=== PATIENT | male | born 1950 | race Caucasian/White ===

== ENCOUNTER 2023-08-02 10:47 | Emergency (ER) | payer OTHER, SELFPAY ==
[2023-08-02 10:48] VITALS: BP 128/83
--- NOTE | 2023-08-02 11:34 | ED.GENMED ---
History of Present Illness
General
Chief Complaint: Catheter/Tube Problem
Source: patient
Time Seen by Provider: 08/02/23 11:19
Travel History
Have you had any contact with someone who has COVID-19?: No
Do you have any symptoms of coronavirus? Fever > 100 degrees, chills, cough, shortness of breath, sore throat, loss of taste or smell, muscle aches, or headache?: No
History of Present Illness
History of Present Illness:
73-year-old male with past medical history of throat cancer, hypertension, hyperlipidemia, status post chronic PEG tube placement presenting to the emergency department for evaluation after a small piece of the PEG tube started become loose causing
the PEG tube leak intermittently and he is now requesting a change in his PEG tube. Patient states he believes the last PEG tube replacement was done about 6 months ago. He has no other concerns at this time including fevers or infectious
symptoms, pain, vomiting, bowel changes.
Past History
Past History
ED Past Medical History: Cancer, HTN, Hypercholesterolemia and Other (GBS, throat cancer, neuropathy)
ED Past Surgical History: Other (Trach, feeding tube)
Social History
Tobacco: Non-smoker
Alcohol: None
Drug: Marijuana
Personal:
Living: alone
Review of Systems
Review of Systems
All Other Systems: ROS reviewed and negative except as documented in HPI and ROS
Phy Exam
Physical Exam
Physical Exam:
GENERAL: Alert , in no apparent distress
EYE: conjunctiva clear
Head: Normocephalic atraumatic
NECK: Supple,
ENT: mmm.
LUNGS: no acute respiratory distress
Abdomen: PEG tube in place without any surrounding cellulitic changes or drainage
NEUROLOGICAL: Alert and oriented
SKIN: Warm and dry, skin intact.
MUSCULOSKELETAL: well perfused.
PSYCH: Normal and appropriate interaction.
Scores
Heart Failure Risk
Heart Failure Risk Score: Not Applicable
Heart Score for Chest Pain Patients
STEMI patient?: Not applicable
Withdrawal Assessment of Alcohol
Withdrawal Assessment Completed?: Not applicable
Course
Orders/Labs/Results
Orders:
Orders
08/02/23 12:24
[facility] CONSULT Urgent
Consulting Provider: Thomas Dorado
Was physician already notified: Yes
Reason for consult: GJ tube check and replacement
Vital Signs
Initial and Last Documented VS:
Initial Vital Signs
Temp Pulse Resp BP Pulse Ox
97.2 F 76 16 128/83 96
08/02/23 10:48 08/02/23 10:48 08/02/23 10:48 08/02/23 10:48 08/02/23 10:48
Last Documented Vital Signs
Temp Pulse Resp BP Pulse Ox
97.2 F 56 16 89/62 97
08/02/23 10:48 08/02/23 14:22 08/02/23 14:22 08/02/23 14:22 08/02/23 14:22
MDM/Problems Addressed
MDM/Problems Addressed:
73-year-old male presenting to the emergency department for PEG tube malfunction and now requesting a change in PEG tube. Patient currently has a [address] I notified interventional radiology who will attempt to replace today.
*Pulse Oximetry
Patient hypoxic: no
*Critical Care Note
Total Time (30-74mins, 75-104mins- exclusive of procedures): Not Applicable
Data Reviewed
Review of Other/Old Records Reveals: Records
Source: patient and records
Comment
Comment:
Based off record review patient last had feeding tube placed here on October 29, 2022. This was done by interventional radiology and had a 22 Hungarian GJ placed
Patient Management
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
Escalation/DeEscalation of care consider admission/obs:
Interventional radiology aware and will attempt to replace GJ tube.
Patient returned from IR after having GJ tube replaced without any difficulty. He is requesting discharge home. Aware of return precautions but otherwise stable for discharge home.
ED Attending Note
-
Portions of this chart may have been created with voice recognition software.� Occasional wrong word or��sound alike� substitutions may have occurred due to the inherent limitations of voice recognition software.
Discharge Plan
Departure
Patient Disposition: Home (Routine Discharge)
Date of Disposition: 08/02/23
Time of Disposition: 15:48
Patient with high blood pressure during this ER visit?: No
Discharge Problem:
Encounter for gastrojejunal (GJ) tube placement
Instructions: How to Care for Your Gastrostomy Tube
Prescriptions:
No Action
levothyroxine 200 mcg tablet
200 mcg PO DAILY AT 0700
Eliquis 5 mg Tablet
5 mg PO BID Qty: 60 0RF
amiodarone [Pacerone] 200 mg Tablet
400 mg feeding tube BID Qty: 64 0RF
Rx Instructions:
Take 2 tabs(400mg) twice a day x 9 days. On 11/06 start taking 1 tab(200mg) twice a day x 14 days
metoprolol tartrate 25 mg Tablet
25 mg feeding tube BID Qty: 60 0RF
Referrals:
UNKNOWN - PT DOES,NOT KNOW [Family Provider] -
Interventions
Interventions:
*Risk Screen - Suicide Last Done: 08/02/23 11:37
*General Assessment Last Done: 08/02/23 11:37
*Neglect/Abuse Screening Last Done: 08/02/23 11:37
ED- Fall Risk Assessment Last Done: 08/02/23 11:37
*ED COVID-19 Vaccine History Last Done: 08/02/23 10:48
*Nursing Disposition Last Done: 08/02/23 15:52
TP-Tmgivk-Yzawebvdhf Assessment Last Done: 08/02/23 11:37
Discharge Date and Time
Discharge Date/Time: 08/02/23 15:53
[2023-08-02 13:15] VITALS: BP 81/59
[2023-08-02 14:22] VITALS: BP 89/62
== END 2023-08-02 15:53 | disposition home or self-care (01) ==
LOC: EMR 10:47
PROVIDERS: CONSULT PHYSICIAN Radiology Diagnostic Radiology; EMERGENCY PHYSICIAN Emergency Medicine
DX: K94.23 Gastrostomy malfunction (principal); C14.0 Malignant neoplasm of pharynx, unspecified; E78.00 Pure hypercholesterolemia, unspecified; I10 Essential (primary) hypertension; G62.9 Polyneuropathy, unspecified; G61.0 Guillain-Barre syndrome; Z79.01 Long term (current) use of anticoagulants
CPT/HCPCS: 99283; 49452

== ENCOUNTER → 2023-08-10 10:37 | Outpatient (REF) | payer OTHER, SELFPAY | LOC: REG 10:37 | PROVIDERS: ATTENDING PHYSICIAN Emergency Medicine | DX: R19.7 Diarrhea, unspecified (principal) | CPT/HCPCS: 87045; 87046; 87077; 87324; 87328; 87329; 87427; 87449 ==

== ENCOUNTER 2023-11-15 11:13 | Inpatient (IN) | payer OTHER, SELFPAY ==
[2023-11-15] VITALS (16 sets, daily range): BP systolic 108–170; BP diastolic 69–122; BMI 21.3; BMI 21.4; BMI 20.8
--- NOTE | 2023-11-15 07:29 | ED.GENMED ---
History of Present Illness
General
Chief Complaint: Airway Problem
Time Seen by Provider: 11/15/23 07:21
History of Present Illness
History of Present Illness:
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
shortness of breath and productive cough for the past week. He states he developed symptoms while he was in [place], felt as though he could not breathe and could not stand still for very long, shortly after returning from [place] by flight he had
increased coughing and shortness of breath. States that it feels as though his lungs are filling up with fluid. Denies any leg swelling or chest pain. No fevers or chills. Hypoxic on arrival as EMS with 15 L nonrebreather mask
Past History
Past History
ED Past Medical History: Cancer, HTN, Hypercholesterolemia and Other (GBS, throat cancer, neuropathy)
ED Past Surgical History: Other (Trach, feeding tube)
Social History
Tobacco: Non-smoker
Alcohol: None
Drug: Marijuana
Personal:
Living: alone
Review of Systems
Review of Systems
Allergies reviewed?: Yes
All Other Systems: ROS reviewed and negative except as documented in HPI and ROS
Phy Exam
Physical Exam
Physical Exam:
GEN: Nontoxic in appearance, well-developed well-nourished
Eyes: PERRLA, EOMs intact, no scleral icterus
HENT: NCAT, oral mucosa moist, no JVD, no cervical adenopathy.
Lungs: Tachypneic with conversational dyspnea, coarse rhonchi and rales over fourth bilaterally, diminished left lower breath sounds
Cardiac: RRR, no M/R/G, no peripheral edema. Radial pulses 2+ bilat
Abdomen: S, NT, ND, NABS, no masses or hepatosplenomegaly
Neuro: AO x 3
MSK: No gross deformity or ecchymosis. No edema. No digital clubbing
Skin: No rashes, petechiae. Normal color, no pallor or jaundice.
Psych: Calm, cooperative, proper hygiene
Course
Orders/Labs/Results
Orders:
Orders
11/15/23 07:22
Electrocardiogram (*1) Urgent
Reason for Study: Shortness of Breath
11/15/23 07:24
EKG- Treatment ONCE
11/15/23 07:28
Chest X-ray Portable [CR Chest Portable - 1 View] Urgent
Comment:
Reason For Exam: SOB
Reason Study Needs to be Portable: Patient Unstable
11/15/23 07:31
Complete Blood Count/With Diff Urgent
Comprehensive Metabolic Panel Urgent
Lactic Acid Urgent
Troponin I Urgent
Blood Culture Urgent
TUSHAR Source: Blood/Venous
Specimen Description:
11/15/23 07:57
0.9% Sodium Chloride 1000 ml [Nss] 1,000 ml IV BOLUS
11/15/23 08:05
MethylPREDNISolone PF [Solu-Medrol Pf] 60 mg IV NOW STA
11/15/23 08:18
Procalcitonin Urgent
PCT Algorithmm Indication: Respiratory
Blood Culture Routine
TUSHAR Source: Blood/Venous
Specimen Description:
11/15/23 08:31
COVID-19 Antigen Urgent
Source: Nasal Swab
Influenza A+B Rapid Molecular Urgent
TUSHAR Source: Nasal Swab
Specimen Description:
11/15/23 08:46
Piperacillin/Tazo 3.375 Gram [Zosyn] 3.375 gram in 50 ml IV NOW
Abnormal Lab Results
11/15/23
07:31
MCHC 29.5 L g/dL
(33.0-37.0)
RDW 17.5 H %
(11.5-14.5)
MPV 11.1 H fL
(7.4-10.4)
Abs Immat Gran (auto) 0.2 H 10^3/uL
(0-0.05)
Absolute Neuts (auto) 6.7 H 10^3/uL
(1.4-6.5)
Absolute Lymphs (auto) 1.1 L 10^3/uL
(1.2-3.4)
Absolute Monos (auto) 0.8 H 10^3/uL
(0.1-0.6)
Immature Gran % 2.5 H %
(0-0.5)
Lymphocytes % 12.7 L %
(20.5-51.1)
Chloride 96 L mmol/L
(98-107)
Carbon Dioxide 38 H mmol/L
(22-30)
BUN 60 H mg/dl
(9-20)
Glucose 182 H mg/dl
(70-99)
Lactic Acid 3.1 H mmol/L
(0.7-2.0)
Troponin I 0.082 H* ng/ml
11/15/23 07:31
11/15/23 07:31
Vital Signs
Initial and Last Documented VS:
Initial Vital Signs
Pulse Ox
95
11/15/23 07:24
Last Documented Vital Signs
Temp Pulse Resp BP Pulse Ox
97.9 F 78 22 115/73 91
11/15/23 07:29 11/15/23 08:15 11/15/23 08:15 11/15/23 08:00 11/15/23 08:24
MDM/Problems Addressed
MDM/Problems Addressed:
73-year-old male presenting with respiratory failure, his history is complex with prior tracheostomy status post decannulation and recurrent aspiration. He is feeding pending at this point. His daughter is concerned that his hygiene is suboptimal
and this leads to his recurrent infectious issues. Do not suspect pulmonary embolism given anticoagulant use, he does not appear volume overloaded to suggest acute CHF but is noted to have bilateral pleural effusions on chest x-ray. There is a
right lower lobe density thus we will treat as presumed aspiration pneumonia, he is requiring 15 L mid flow oxygen to maintain adequate saturations thus he will be admitted to the hospital service for further management
*Critical Care Note
Total Time (30-74mins, 75-104mins- exclusive of procedures): 32 minutes
comment:
Critical care time: 32 minutes
Critical care time was exclusive of: Separately billable procedures, treating other patients, and teaching time
Critical care was necessary to treat or prevent imminent or life-threatening deterioration of the following conditions: Acute respiratory failure with hypoxia
Critical care time spent personally by me on the following activities:
[x] Review of old charts
[x] Obtaining history from patient or surrogate
[x] Ordering and review of the laboratory studies
[x] Ordering and review of radiographic studies
[x] Ordering and performing treatments and interventions
[x] Patient patient's response to treatment
[x] Development of treatment plan with patient or surrogate
ED Attending Note
-
Portions of this chart may have been created with voice recognition software.� Occasional wrong word or��sound alike� substitutions may have occurred due to the inherent limitations of voice recognition software.
Discharge Plan
Departure
Patient Disposition: Admit
Date of Disposition: 11/15/23
Time of Disposition: 08:51
Admit to: Med/Surg
Presentation/result/management discussed w/ accepting MD/DO: Hospitalist
Discharge Problem:
Acute hypoxemic respiratory failure, Right lower lobe pneumonia
Prescriptions:
No Action
loperamide 2 mg Tablet
2 mg feeding tube Q4HPRN PRN (Reason: diarrhea)
levofloxacin [Levaquin] 750 mg Tablet
750 mg feeding tube DAILYPRN PRN (Reason: infection)
amiodarone [Pacerone] 200 mg tablet
200 mg feeding tube DAILY
metoprolol tartrate 25 mg tablet
25 mg feeding tube DAILY
Eliquis 5 mg tablet
5 mg feeding tube DAILY
Patient Comments:
11/15/2023- bottle written for bid not daily
levothyroxine [Synthroid] 175 mcg Tablet
feeding tube DAILY
Rx Instructions:
patient has 175mcg and 200mcg in his bottles, stated he does not know what they are but takes them once a day. all bottles are date 2022 and mixed. ost are missing labels
Referrals:
UNKNOWN - PT DOES,NOT KNOW [Family Provider] -
Interventions
Interventions:
*Risk Screen - Suicide Last Done: 11/15/23 07:29
*General Assessment Last Done: 11/15/23 07:29
*Neglect/Abuse Screening Last Done: 11/15/23 07:29
*ED COVID-19 Vaccine History Last Done: 11/15/23 07:29
ED- Pulmonary Assessment Last Done: 11/15/23 07:24
Discharge Date and Time
Print Language: SOU[place]UDANESE
[2023-11-15 07:41] LABS: % Basophils 0.4 % (0-2); % Eosinophils 0.3 % (0-6); % Immature Granulocytes 2.5 % (0-0.5); % Lymphocytes 12.7 % (20.5-51.1); % Monocytes 8.9 % (1.7-9.3); % Neutrophils 75.2 % (42.2-75.2); Absolute Immature Granulocytes 0.2 10^3/uL (0-0.05); Absolute Lymphocytes 1.1 10^3/uL (1.2-3.4); Absolute Monocytes 0.8 10^3/uL (0.1-0.6); Absolute Neutrophils 6.7 10^3/uL (1.4-6.5); Hematocrit 47.1 % (39.0-52.0); Hemoglobin 13.9 g/dL (13.0-18.0); Mean Corp Hgb Conc. 29.5 g/dL (33.0-37.0); Mean Corpuscular Hgb 27.5 pg (27.0-31.0); Mean Corpuscular Volume 93.3 fL (80.0-94.0); Mean Platelet Volume 11.1 fL (7.4-10.4); Nucleated Red Blood Cells % 0.3 % (-); Platelet Count 162 10^3/uL (130-400); Red Blood Cell Count 5.05 10^6/uL (4.70-6.10); Red Cell Dist. Width 17.5 % (11.5-14.5)
[2023-11-15 07:54] LABS: ALT (SGPT) 18 U/L (0-50); AST (SGOT) 26 U/L (17-59); Albumin 3.7 g/dl (3.5-5.0); Alkaline Phosphatase 94 U/L (38-126); Blood Urea Nitrogen 60 mg/dl (9-20); Carbon Dioxide 38 mmol/L (22-30); Chloride 96 mmol/L (98-107); Estimated Creatinine Clearance 50 ml/min; Glucose 182 mg/dl (70-99); Potassium 4.6 mmol/L (3.5-5.1); Sodium 138 mmol/L (135-145); Total Bilirubin 0.6 mg/dl (0.2-1.3); Total Protein 6.3 g/dl (6.3-8.2); eGFR 58.73
[2023-11-15 07:55] LABS: Lactic Acid 3.1 mmol/L (0.7-2.0)
[2023-11-15 08:08] LABS: Troponin I 0.082 ng/ml
[2023-11-15] MEDS: NSS 1000 IV (08:19)
[2023-11-15] MEDS: SOLU-MEDROL PF 60 MG IV (08:20)
[2023-11-15 09:02] LABS: Procalcitonin 0.69 ng/ml (0.0-0.25)
[2023-11-15 09:03] LABS: COVID-19 Antigen Negative (Negative)
[2023-11-15] MEDS: ZOSYN 50 IV ×3 (09:11→20:23)
--- NOTE | 2023-11-15 09:19 | HPS.HSE ---
Family Physician
-
Family Physician: NOT KNOW UNKNOWN - PT DOES
Chief Complaint
-
Shortness of Breath, Cough
History of Present Illness
73 year-old male with history of congestive heart failure, A-fib on Eliquis, hypothyroidism, throat cancer status post resection, recurrent aspiration, aspiration pneumonia and recurrent pneumonia with prior history of trach (s/p decannulation),
Gastrostomy Tube Feedings, Guillain-Awad� syndrome, Hypertension, Hyperlipidemia, and Hypothyroidism presented to the emergency department for evaluation of shortness of breath and productive cough for the past week. Patient said he developed
symptoms while he was in [place], felt as though he could not breathe and could not stand still for very long, shortly after returning from [place] by air, he had increased coughing and shortness of breath, however he said that he is able to
ambulate fine. Hypoxic on arrival as EMS with 15 L nonrebreather mask. Patient also vomited this morning -- and said that he vomited up water.
Patient was hospitalized from October 21, 2022 to October 28, 2022 with aspiration pneumonia and atrial fibrillation with rapid ventricular rate, after presenting with shortness of breath and vomiting. At that time, he completed his course of IV
antibiotics in the hospital (IV Zosyn then Unasyn) and remained on high flow oxygen - it was difficult to wean oxygen. Patient also received intravenous Lasix with improvement in oxygen but needed some intravenous fluids given back. Patient also had
A-Fib with RVR with hypotension, and started on Amiodarone, and was newly started on Metoprolol and Eliquis. He was found to require 2L with ambulation on discharge.
Medical History
Past Medical History
Past Medical History: Reports Other (As per HPI above)
Past Surgical History: Reports Other (Trach. Feeding tube.)
Social History
Tobacco: Non-smoker
Alcohol: None
Drug: Former User (Marijuana)
Family History
Family History: Not pertinent
Allergies / Home Medications
Allergies reflects when Allergies were last updated in [facility].
Home Medications with original date entered in [facility]
Allergy/Medication List:
Allergies
Allergy/AdvReac Type Severity Reaction Status Date / Time
No Known Allergies Allergy Verified 11/15/23 10:05
Home Medications
amiodarone 200 mg tablet (Pacerone) 200 mg feeding tube DAILY 11/15/23
apixaban 5 mg tablet (Eliquis) 5 mg feeding tube DAILY 11/15/23
levofloxacin 750 mg tablet 750 mg feeding tube DAILYPRN PRN infection 11/15/23
levothyroxine 175 mcg tablet (Synthroid) mcg feeding tube DAILY 11/15/23
loperamide 2 mg tablet 2 mg feeding tube Q4HPRN PRN diarrhea 11/15/23
metoprolol tartrate 25 mg tablet 25 mg feeding tube DAILY 11/15/23
Review of Systems
-
A 12 point ROS was completed and negative except as noted: Yes
Physical Exam
Vital Signs
Vital Signs
Temp Pulse Resp BP Pulse Ox
97.9 F 78 22 115/73 91
11/15/23 07:29 11/15/23 08:15 11/15/23 08:15 11/15/23 08:00 11/15/23 08:24
Physical Exam
General: No Apparent Distress
HEENT: NormoCephalic, Moist mucous membranes and Atraumatic
Respiratory: Wheezes
Cardiac: S1/S2 and Regular Rhythm
GI: Soft, Non Tender and Normal Bowel Sounds
Musculoskeletal: No Cyanosis and No Edema
Skin: Warm and Dry
Neuro: Awake, Alert and AO x 3
Psych: Calm and Intact Judgment/Insight
Laboratory Results
-
11/15/23 07:31
11/15/23 07:31
Laboratory Results
Lactic Acid 3.1 mmol/L (0.7-2.0) H 11/15/23 07:31
Total Bilirubin 0.6 mg/dl (0.2-1.3) 11/15/23 07:31
AST 26 U/L (17-59) 11/15/23 07:31
ALT 18 U/L (0-50) 11/15/23 07:31
Alkaline Phosphatase 94 U/L (38-126) 11/15/23 07:31
Troponin I 0.082 ng/ml H* 11/15/23 07:31
Impression/Plan
-
Assessment/Plan
Aspiration Pneumonia
Elevated Immature Granulocytes
Recurrent aspiration
Aspiration pneumonia
Recurrent pneumonia with prior history of trach (s/p decannulation)
-Continue Zosyn
-MRSA screen
-Sputum Cultures
-Follow blood cultures
-Consult pulmonary, recommendations appreciated
-Patient takes Levaquin 750 mg prn infection based on home medications list
Possible Tiny Bilateral Pleural Effusions
Asbestos-related pleural disease
-Consult pulmonary, recommendations appreciated
Congestive heart failure
-Continue home beta yana Metoprolol
A-fib on Eliquis
-Continue Eliquis
-Continue Amiodarone
-Continue Metoprolol
History of Throat cancer status post resection
Gastrostomy Tube Feedings
-Continue tube feedings
-Continue home medications through tube feedings
-Dietitian consulted for recommendations; patient's daughter also bringing home tube feeding regimen, as per patient
Guillain-Awad� syndrome
-During 2022 hospitalization it was noted that given patient has had frequent pneumonias since GBS in 2017 an Ig panel was checked with finding of low IgG - and immunologic work-up as outpatient was recommended.
-Chronic left lower leg numbness
Hypertension
-Continue home beta yana
Hyperlipidemia
Hypothyroidism
-Continue Levothyroxine
DVT PPx: Eliquis
Diet: Tube Feedings
Code Status: Full Code
--- NOTE | 2023-11-15 13:25 | PTOTSP ---
Video Swallow Examination
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 At baseline he uses PEG for primary means of nutrition/hydration. He has had prior swallowing studies (05/28/2018 mild
oral severe pharyngeal dysphagia) and does not want any repeat testing via swallow studies at this time.
Recommend:
1. NPO - use PEG for nutrition/hydration/medication
2. Aspiration Risk Hydration Protocol - SPARING ice chips (5 an hour) after oral care. D/C if with increased SOB
3. Oral care at least 3x daily with suctioning
4. Head of bed upright to 30 degrees, reflux precautions given PEG
No further follow up warranted. Please reconsult as appropriate.
[2023-11-15] MEDS: ELIQUIS 5 MG TUBE (13:42)
[2023-11-15] MEDS: PACERONE 200 MG TUBE (13:43)
[2023-11-15] MEDS: LOPRESSOR 25 MG TUBE (13:43)
[2023-11-15 13:46] LABS: Troponin I 0.086 ng/ml
--- NOTE | 2023-11-15 14:40 | CON.PUL ---
Consultation
Consultation Request
Date/Time Consultation Requested: 11/15/2023 - 1105
Date/Time Consultation Performed: 11/15/2023 - 1249
Requesting Provider: Dr. Last
Performing Provider: Dr. Islas
Reason for Consultation: Hypoxia
Medical History
-
Chief Complaint: SOB
History of Present Illness:
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
resection with chemo/radiation about 21 years ago who now presents with shortness of breath. Patient was traveling in [place] when he began to feel short of breath. Came home about 9 days ago and shortness of breath persisted. Patient has oxygen
at home and applied 5 L/min but still with no improvement. 911 called and found patient hypoxic to 83% on 5 L/min. Breathing treatment given with Atrovent with improvement in saturations. In the ER he was saturating 97% on nonrebreather and was
afebrile to 97.9 �F. Labs showed elevated lactic acid to 3.1, glucose 182, elevated troponin of 0.082, and procalcitonin 0.69. COVID antigen and flu swab A/B were negative. CXR showed hazy opacification in the right chest suggesting pneumonia.
Patient was given steroids, IV fluids (NS 0.9% x1L) and Zosyn in the ER and admitted to the hospitalist service. Antibiotics with Zosyn were continued and now pulmonary consulted for additional recommendations.
When I saw the patient he was on 10 L/min saturating 96%, heart rate 71 and BP 112/69. He says he developed sudden shortness of breath last night. He was living in [place] prior for few weeks to that at a 55 and older community. He denies any
recent sick contacts. He does not have the best oral hygiene, but the patient admits to.
PMHx: Tonsillar cancer s/p resection, chemo/radiation (approximately 21 years ago), history of GBS (2017) c/b trach with decannulation, chronic dysphagia s/p PEG, recurrent pneumonia, THC use
PSHx: History of tracheostomy s/p decannulation, s/p PEG, tonsillar cancer resection
Past Medical History
Past Medical History: Other (Above as per HPI)
Past Surgical History: Other (Above as per HPI)
Social History
Tobacco: Non-smoker
Alcohol: Former
Drug: None
Personal:
Employment: Retired
Family History
Family History: Reviewed & Not Pertinent
Allergies / Home Medications
Allergies
Allergy/AdvReac Type Severity Reaction Status Date / Time
No Known Allergies Allergy Verified 11/15/23 10:05
Home Medications
�Medication �Instructions �Recorded �Confirmed �Last Taken �Type
amiodarone 200 mg tablet (Pacerone) 200 mg feeding tube DAILY 11/15/23 11/15/23 11/14/23 History
apixaban 5 mg tablet (Eliquis) 5 mg feeding tube DAILY 11/15/23 11/15/23 11/14/23 History
levofloxacin 750 mg tablet 750 mg feeding tube DAILYPRN PRN 11/15/23 11/15/23 Unknown History
infection
levothyroxine 175 mcg tablet mcg feeding tube DAILY 11/15/23 11/14/23 History
(Synthroid)
loperamide 2 mg tablet 2 mg feeding tube Q4HPRN PRN 11/15/23 11/15/23 Unknown History
diarrhea
metoprolol tartrate 25 mg tablet 25 mg feeding tube DAILY 11/15/23 11/15/23 11/14/23 History
Review of Systems
-
History Source: Patient
All other systems: Negative unless noted
Vitals / Labs / Diagnostic Testing
Vital Signs
Temp Pulse Resp BP Pulse Ox
97.9 F 82 24 153/88 95
11/15/23 07:29 11/15/23 10:15 11/15/23 10:15 11/15/23 10:00 11/15/23 10:24
Lab Data
11/15/23 07:31
11/15/23 07:31
Microbiology
11/15/23 12:57 Sputum Respiratory Culture - Final
11/15/23 12:57 Sputum Gram Stain - Final
11/15/23 08:31 Nasal Swab Influenza Types A & B (HÉCTOR) - Final
Negative for Influenza A & B, NAAT
Negative results must be combined with clinical observations
and patient history.
Nucleic Acid Amplification test (NAAT)performed on the
[employer] platform.
Diagnostic Testing:
Physical Exam
-
HEENT: Normocephalic, Anicteric and Other (+dentures in upper row)
Cardiovascular: S1/S2 and Peripheral Edema (negative)
Respiratory: Wheeze (negative), Rhonchi (right anterior chest) and Accessory Resp Muscle Use (negative)
GI: Soft, Non Distended and Non Tender
Neurology: Awake and Alert
Skin: Warm and Dry
General: Comfortable and Chills (negative)
Assessment
-
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
cancer s/p resection with chemo/radiation about 21 years ago who now presents with shortness of breath. Patient was traveling in [place] when he began to feel short of breath. Came home about 9 days ago and shortness of breath persisted. Patient
has oxygen at home and applied 5 L/min but still with no improvement. 911 called and found patient hypoxic to 83% on 5 L/min. Breathing treatment given with Atrovent with improvement in saturations. In the ER he was saturating 97% on
nonrebreather and was afebrile to 97.9 �F. Labs showed elevated lactic acid to 3.1, glucose 182, elevated troponin of 0.082, and procalcitonin 0.69. COVID antigen and flu swab A/B were negative. CXR showed hazy opacification in the right chest
suggesting pneumonia. Patient was given steroids, IV fluids (NS 0.9% x1L) and Zosyn in the ER and admitted to the hospitalist service. Antibiotics with Zosyn were continued and now pulmonary consulted for additional recommendations.
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
Impression:
#Acute respiratory failure with hypoxia likely due to aspiration pneumonia/pneumonitis
#Lactic acidosis
#Elevated troponin
#Chronic dysphagia with recurrent aspiration
#GBS (2017) c/b long term care phlebotomist ventilation with tracheostomy s/p decannulation
#Hx of tonsillar cancer s/p resection and chemo/XRT (~21 years ago)
Plan:
- Aspiration precautions
- Diet as per [facility] --> they recommend NPO for now with aspiration risk hydration protocol
- Continue ABx with Zosyn, plan for total of 7-10 days
- Trend lactate levels until <2mmol/L
- Infectious workup with blood and respiratory C; Check legionella and Strep PNA urine antigens
- Maintain SpO2 >90-94% with supplemental O2 as needed
- Incentive spirometer
- Replete electrolytes with K>4, Mg>2
- Maintain euglycemia with goal BG >100 and <180
- prn nebulized bronchodilators
- DVT ppx
Pulmonary service will continue to follow along.
Total time spent today was 75 minutes for this encounter. Time includes reviewing laboratory test/imaging results, reviewing pertinent medical records, obtaining and reviewing medical history, performing an appropriate exam, ordering medications,
tests and procedures. Time also includes documentation of this encounter, coordinating patient care and communicating with other healthcare professionals. Total time does not include separately billed tests performed on this date of service.
Data:
CXR 11-15-2023:
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
Hazy opacification in the right chest which could represent pneumonitis.
--- NOTE | 2023-11-15 17:26 | PTCARENOTE ---
Addendum entered by Stefan Fernandes RN 11/15/23 17:31:
Pt refused ECHO at bedside. Dr. Last notified.
Original Note:
Received on 15L Midflow. Weaned to 10L Midflow. SaO2 96%. Pt seen by speech. NPO. 5 ice chips allowed per hour after oral care. Pt instructed on oral care and demonstrated understanding. Pt's daughter providing own tube feed from home. Pt
administers 5-6 cans throughout the day with piston syringe.
--- NOTE | 2023-11-15 22:40 | PTCARENOTE ---
Pt Daughter brought in home tube feed (Nutren 2.0). Order placed for tube feed, Pt tolerated well. Assessment care and vitals as charted.
[2023-11-15 22:43] LABS: Troponin I 0.072 ng/ml
[2023-11-16] VITALS (9 sets, daily range): BP systolic 94–173; BP diastolic 50–96; BMI 20.8; BMI 20.5
[2023-11-16] MEDS: ZOSYN 50 IV ×4 (02:04→19:49)
[2023-11-16 04:40] LABS: % Basophils 0.3 % (0-2); % Immature Granulocytes 2.4 % (0-0.5); % Monocytes 9.1 % (1.7-9.3); % Neutrophils 68.2 % (42.2-75.2); Absolute Immature Granulocytes 0.2 10^3/uL (0-0.05); Absolute Lymphocytes 1.3 10^3/uL (1.2-3.4); Absolute Monocytes 0.6 10^3/uL (0.1-0.6); Absolute Neutrophils 4.5 10^3/uL (1.4-6.5); Hematocrit 39.3 % (39.0-52.0); Hemoglobin 11.9 g/dL (13.0-18.0); Mean Corp Hgb Conc. 30.3 g/dL (33.0-37.0); Mean Corpuscular Hgb 26.8 pg (27.0-31.0); Mean Corpuscular Volume 88.5 fL (80.0-94.0); Mean Platelet Volume 12.3 fL (7.4-10.4); Nucleated Red Blood Cells % 0 % (-); Platelet Count 176 10^3/uL (130-400); Red Blood Cell Count 4.44 10^6/uL (4.70-6.10); Red Cell Dist. Width 17.1 % (11.5-14.5); White Blood Cell Count 6.6 10^3/uL (4.8-10.8)
[2023-11-16 05:04] LABS: Lactic Acid 1.8 mmol/L (0.7-2.0)
[2023-11-16 05:06] LABS: Troponin I 0.068 ng/ml
[2023-11-16 05:55] LABS: Hepatitis C Antibody Negative (Negative)
[2023-11-16] MEDS: ELIQUIS 5 MG TUBE (07:36)
[2023-11-16] MEDS: LOPRESSOR 25 MG TUBE (07:36)
[2023-11-16] MEDS: PACERONE 200 MG TUBE (07:36)
--- NOTE | 2023-11-16 09:50 | W.PN.PUL3 ---
Today's Communication / Plan
-
Aspiration precautions
Continue tube feeds
Titrate O2 flow rate to maintain SpO2 >90-94%
MAP>65
ABx
Infectious workup
Assessment
-
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
cancer s/p resection with chemo/radiation about 21 years ago who now presents with shortness of breath. Patient was traveling in [place] when he began to feel short of breath. Came home about 9 days ago and shortness of breath persisted. Patient
has oxygen at home and applied 5 L/min but still with no improvement. 911 called and found patient hypoxic to 83% on 5 L/min. Breathing treatment given with Atrovent with improvement in saturations. In the ER he was saturating 97% on
nonrebreather and was afebrile to 97.9 �F. Labs showed elevated lactic acid to 3.1, glucose 182, elevated troponin of 0.082, and procalcitonin 0.69. COVID antigen and flu swab A/B were negative. CXR showed hazy opacification in the right chest
suggesting pneumonia. Patient was given steroids, IV fluids (NS 0.9% x1L) and Zosyn in the ER and admitted to the hospitalist service. Antibiotics with Zosyn were continued and now pulmonary consulted for additional recommendations.
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
Impression:
#Acute respiratory failure with hypoxia likely due to aspiration pneumonia/pneumonitis
#Lactic acidosis � resolved
#Hyperglycemia
#Elevated troponin
#Chronic dysphagia with recurrent aspiration
#GBS (2017) c/b medical terminologist ventilation with tracheostomy s/p decannulation
#Hx of tonsillar cancer s/p resection and chemo/XRT (~21 years ago)
Plan:
- Aspiration precautions
- Diet as per [facility] --> they recommend NPO for now with aspiration risk hydration protocol
- Continue tube feeds
- Continue ABx with Zosyn, plan for total of 7-10 days
- Infectious workup with blood and respiratory cultures; check legionella and Strep PNA urine antigens; follow up MRSA swab
- Maintain SpO2 >90-94% with supplemental O2 as needed
- Incentive spirometer encouraged
- Replete electrolytes with K>4, Mg>2
- Maintain euglycemia with goal BG >100 and <180
- prn nebulized bronchodilators
- DVT ppx
Pulmonary service will continue to follow along.
Total time spent today was 35 minutes for this encounter. Time includes reviewing laboratory test/imaging results, reviewing pertinent medical records, obtaining and reviewing medical history, performing an appropriate exam, ordering medications,
tests and procedures. Time also includes documentation of this encounter, coordinating patient care and communicating with other healthcare professionals. Total time does not include separately billed tests performed on this date of service.
Data:
CXR 11-15-2023:
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
Hazy opacification in the right chest which could represent pneumonitis.
Subjective Data
-
Date of Service:
Date of Service: November 16, 2023
Chief Complaint: Pulmonary Follow Up
Subjective:
Pt seen this AM. Sleeping in no acute distress. No acute events reported from overnight. He is saturating 95% on 4 L/min nasal cannula. Heart rate 63 and BP 113/74.
Review of Systems
General: Other (Negative unless mentioned above)
Objective Data
Data Reviewed
Vital Signs / I&O / Oxygen:
Vital Signs
Temp Pulse Resp BP Pulse Ox
97.7 F 62 22 120/86 95
11/16/23 07:35 11/16/23 10:08 11/16/23 10:08 11/16/23 10:08 11/16/23 11:10
Intake and Output
11/15/23 11/16/23 11/17/23
06:59 06:59 06:59
Intake Total 820 / 820 500 / 500
Output Total 1250 / 1250 300 / 300
Balance -430 / -430 200 / 200
SaO2 95
Nasal Cannula flow liters per 2
minute
Physical Exam
General: Respiratory Distress (Negative) and Comfortable
HEENT: Normocephalic, Anicteric and Other (+dentures in upper row of mouth)
Cardiovascular: S1-S2 and Peripheral Edema (negative)
Respiratory: Wheeze (Negative), Crackles (Negative), Rhonchi (right anterior chest) and Accessory Resp Muscle Use (negative)
GI: Soft, Non Distended, Non Tender and Normal Bowel Sounds
Neurology: Other (Sleeping but easily arousable and answering questions appropriately)
Skin: Dry
Labs/Micro/Reports
Lab Data
11/16/23 04:14
11/16/23 09:45
Microbiology
11/15/23 08:18 Blood/Venous Blood Culture - Preliminary
No Growth in 24 hours- Final report to follow
11/15/23 07:31 Blood/Venous Blood Culture - Preliminary
No Growth in 24 hours- Final report to follow
11/15/23 12:57 Sputum Respiratory Culture - Final
11/15/23 12:57 Sputum Gram Stain - Final
11/15/23 08:31 Nasal Swab Influenza Types A & B (HÉCTOR) - Final
Negative for Influenza A & B, NAAT
Negative results must be combined with clinical observations
and patient history.
Nucleic Acid Amplification test (NAAT)performed on the
[employer] platform.
[2023-11-16 10:13] LABS: Blood Urea Nitrogen 49 mg/dl (9-20); Calcium 8.9 mg/dl (8.4-10.2); Carbon Dioxide 35 mmol/L (22-30); Chloride 97 mmol/L (98-107); Estimated Creatinine Clearance 63 ml/min; Glucose 181 mg/dl (70-99); Magnesium 2.2 mg/dl (1.6-2.3); Potassium 4.2 mmol/L (3.5-5.1); Sodium 137 mmol/L (135-145); eGFR > 60.00
[2023-11-16 10:30] LABS: Troponin I 0.128 ng/ml
--- NOTE | 2023-11-16 11:11 | PTCARENOTE ---
pt aaox3. states no pain. pt started on 10l nc at beginning of shift now on 2l nc o2 sat 95%. breath sounds diminished at base. pt coughing with ice chips. g/j tube flushed before and after medications. bolus tube feeding as ordered. pt states
he take 2 bottles for breakfast lunch and dinner. pt oob to bathroom. pt requesting a new peg tube due to stopper over tube ripped.
--- NOTE | 2023-11-16 14:33 | PTCARENOTE ---
report given to [facility] nurse. 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
--- NOTE | 2023-11-16 15:02 | PTCARENOTE ---
Received pt from IMU via stretcher, accompanied by volunteer. Pt AAO x3, MCLEOD , ambulatory to bed, denies weakness/dizziness. peech sl garbled at times. VSS. Placed on telemetry:NSR. On nc 4 lpm- pulse ox 94%, no c/o SOB. Abd soft, rounded, PEG
tube intact, no drainage noted. pt DTV; urial at bedside. oriented to [facility], currently resting in bed. Will continue to monitor.
[2023-11-16 15:42] LABS: Troponin I 0.265 ng/ml
--- NOTE | 2023-11-16 15:42 | W.PN.HOSP.TC ---
Today's Communication/Plan
-
GI consulted for repair/replacement of PEG tube
Hold Tube Feedings after midnight except medications
Continue Zosyn
Oxygen requirements improving
Appreciate pulmonary
Assessment / Plan
Assessment / Plan
Physical Exam
General: No Apparent Distress
HEENT: NormoCephalic, Moist mucous membranes and Atraumatic
Respiratory: Wheezes
Cardiac: S1/S2 and Regular Rhythm
GI: Soft, Non Tender and Normal Bowel Sounds
Musculoskeletal: No Cyanosis and No Edema
Skin: Warm and Dry
Neuro: Awake, Alert and AO x 3
Psych: Calm and Intact Judgment/Insight
Assessment/Plan
Acute respiratory failure with hypoxia likely due to aspiration pneumonia/pneumonitis
Aspiration Pneumonia
Elevated Immature Granulocytes
Recurrent aspiration
Aspiration pneumonia
Recurrent pneumonia with prior history of trach (s/p decannulation)
-Continue Zosyn
-MRSA screen
-Sputum Cultures
-Follow blood cultures
-Consult pulmonary, recommendations appreciated
-Patient takes Levaquin 750 mg prn infection based on home medications list
-Patient and his daughter requested that due to a problem with patient's PEG tube, they would like it changed while inpatient -- GI consulted, evaluation and recommendations appreciated
-No tube feeding after midnight except medications, as per GI in case they need patient to be NPO for fixing PEG tube
Possible Tiny Bilateral Pleural Effusions
Asbestos-related pleural disease
-Consult pulmonary, recommendations appreciated
Congestive heart failure
-Continue home beta yana Metoprolol
A-fib on Eliquis
-Continue Eliquis -- verify that this is a daily dose?
-Continue Amiodarone
-Continue Metoprolol
History of Throat cancer status post resection
Gastrostomy Tube Feedings
-Continue tube feedings
-Continue home medications through tube feedings
-Dietitian consulted for recommendations; patient's daughter also bringing home tube feeding regimen, as per patient
Guillain-Awad� syndrome
-During 2022 hospitalization it was noted that given patient has had frequent pneumonias since GBS in 2017 an Ig panel was checked with finding of low IgG - and immunologic work-up as outpatient was recommended.
-Chronic left lower leg numbness
Hypertension
-Continue home beta yana
Hyperlipidemia
Hypothyroidism
-Continue Levothyroxine
DVT PPx: Eliquis
Diet: Tube Feedings
Code Status: Full Code
On November 16, 2023, I spoke to patient's daughter Laura. All questions and concerns were answered to satisfaction.
Anticipated Discharge: 24 - 48 hours
Subjective/Interval History
-
Date of Service: November 16, 2023
Patient was seen and examined. He denied any new significant symptoms or complaints.
Objective Data
-
Labs:
Laboratory Results
11/16/23 11/16/23 11/16/23
04:14 05:22 09:45
WBC 6.6
Hgb 11.9 L
Hct 39.3
Plt Count 176
Sodium Cancelled Cancelled 137
Potassium Cancelled Cancelled 4.2
Chloride Cancelled Cancelled 97 L
Carbon Dioxide Cancelled Cancelled 35 H
BUN Cancelled Cancelled 49 H
Creatinine Cancelled Cancelled 1.0
Glucose Cancelled Cancelled 181 H
Calcium Cancelled Cancelled 8.9
Vital Signs:
Vital Signs
Temp Pulse Resp BP Pulse Ox
97.8 F 65 16 127/77 94
11/16/23 14:56 11/16/23 15:23 11/16/23 15:23 11/16/23 14:56 11/16/23 15:23
I&O
11/15/23 11/16/23 11/17/23
06:59 06:59 06:59
Intake Total 820 / 820 500 / 500
Output Total 1250 / 1250 300 / 300
Balance -430 / -430 200 / 200
--- NOTE | 2023-11-16 15:52 | PTCARENOTE ---
Troponin drawn at 3:00 PM; result 0.265; Dr. Last notified.
--- NOTE | 2023-11-16 16:26 | CM ---
Patient with Hx Gastrostomy Tube Feedings with Dx Aspiration Pneumonia. O2 4L. Nutren PEG feeds. Patient transferred from IMU to .
Spoke with patient's daughter Laura;
the patient resides with her and son in law locally in a 2 story house with 3 NAOMIE, part of the year.
He also resides alone in his 1 story house with 3 NAOMIE in [place].
He will be returning to daughter's house for a few days then driving himself back to [place].
The patient has been independent in ADLs and ambulation.
He has been weak lately and only walking short distances (no falls).
DME - Nutren PEG feeds/supplies, nebulizer, O2 concentrator & portables through [facility]
VN - daughter can't remember
SNF - none
[place] - [place]
PCP - Dr Jaime (spelling?), [place]
Pharmacy - [facility]
Spoke with Irena Beckett Obstetrical Anesthesiologist (ph [phone]); she is available to assist with d/c planning.
Daughter would like patient to have [employer] portable O2 at home---> she will call [facility] about this. Also gave her Michael Luo's contact info
Daughter would like patient to have VN for PT at home.
Daughter would like patient's g-tube exchanged while he is here (6 months old).
Message to Dr Last with requests for PT Eval and PEG exchange.
Plan follow up after PT Eval.
Plan referral to VN in [place] after PT Eval completed.
Plan home with VN.
[2023-11-16 21:55] LABS: Troponin I 0.244 ng/ml
[2023-11-17] VITALS (7 sets, daily range): BP systolic 106–136; BP diastolic 62–89; PULSE 60–62; O2SAT 98; BMI 20.1
[2023-11-17] MEDS: ZOSYN 50 IV ×4 (02:51→20:04)
[2023-11-17] MEDS: SYNTHROID 150 MCG TUBE (05:29)
[2023-11-17 07:17] LABS: % Basophils 0.2 % (0-2); % Eosinophils 1.7 % (0-6); % Immature Granulocytes 3.7 % (0-0.5); % Lymphocytes 34.2 % (20.5-51.1); % Monocytes 10.7 % (1.7-9.3); % Neutrophils 49.5 % (42.2-75.2); Absolute Eosinophils 0.1 10^3/uL (0-0.7); Absolute Immature Granulocytes 0.3 10^3/uL (0-0.05); Absolute Lymphocytes 2.7 10^3/uL (1.2-3.4); Absolute Monocytes 0.9 10^3/uL (0.1-0.6); Hematocrit 43.5 % (39.0-52.0); Mean Corp Hgb Conc. 29.9 g/dL (33.0-37.0); Mean Corpuscular Volume 90.4 fL (80.0-94.0); Mean Platelet Volume 11.4 fL (7.4-10.4); Nucleated Red Blood Cells % 0 % (-); Platelet Count 169 10^3/uL (130-400); Red Blood Cell Count 4.81 10^6/uL (4.70-6.10); Red Cell Dist. Width 16.6 % (11.5-14.5)
[2023-11-17 07:58] LABS: Blood Urea Nitrogen 52 mg/dl (9-20); Calcium 9.4 mg/dl (8.4-10.2); Carbon Dioxide 36 mmol/L (22-30); Chloride 96 mmol/L (98-107); Estimated Creatinine Clearance 55 ml/min; Glucose 126 mg/dl (70-99); Potassium 4.2 mmol/L (3.5-5.1); Sodium 138 mmol/L (135-145); eGFR > 60.00
[2023-11-17] MEDS: PACERONE 200 MG TUBE (08:24)
[2023-11-17] MEDS: ELIQUIS 5 MG TUBE (08:24)
[2023-11-17] MEDS: LOPRESSOR 25 MG TUBE (08:24)
--- NOTE | 2023-11-17 09:05 | PN.CDI ---
CDI
- -
CDI:
Physician Documentation Request
Admit Date: 11/15/23 11:13
Dear Doctor Shala,
Please review the following and provide your response in the progress notes.
Clinical Indicators:
5/6 Pt admitted with Pneumonia, acute respiratory failure
Laboratory Tests
11/15/23 11/16/23 11/16/23
07:31 04:14 09:45
Troponin I 0.082 H* 0.068 H* 0.128 H* D
11/16/23
21:24
Troponin I 0.244 H*
Based on the above, could you please clarify in the progress notes, the appropriate diagnosis, if significant, that supports the above abnormalities and additional evaluation, monitoring and/or treatment rendered:
Non-ischemic myocardial injury
Abnormal lab value not significant
Other( Please specify)
Use of terms such as suspected, likely, concern for, or probable (associated with a specific diagnosis that is being evaluated, monitored, or treated as if it exists) are acceptable and can be coded in the inpatient setting, when documented at the
time of discharge.
Thank you,
Karyn Muse RN, BSN
CDI Specialist
[place] [facility]
Please use your independent medical judgment in providing your response.
--- NOTE | 2023-11-17 10:36 | PN.CDI ---
CDI
- -
CDI:
Physician Documentation Request
Admit Date: 11/15/23 11:13
Dear Doctor Shala,
Please review the following and provide your response in the progress notes.
Clinical Indicators:
5/6 Pt admitted with pneumonia and acute respiratory failure
5/ PN: 'Congestive heart failure'
Please provide further specificity regarding the most likely type of CHF you are evaluating, treating or monitoring.
Chronic Systolic Heart Failure
Chronic Diastolic Heart Failure
Chronic Combined Systolic/Diastolic Heart Failure
Other (Please specify)
Use of terms such as suspected, likely, concern for, or probable (associated with a specific diagnosis that is being evaluated, monitored, or treated as if it exists) are acceptable and can be coded in the inpatient setting, when documented at the
time of discharge.
Thank you,
Karyn Muse RN, BSN
CDI Specialist
Available via [place] [facility]
Please use your independent medical judgment in providing your response.
--- NOTE | 2023-11-17 10:52 | PTOTSP ---
pt currently demonstrates ability to complete simple ADLs, functional transfers, ambulation with supervision to no assistance. pt currently requiring 4LO2, none at baseline. no acute OT needs identified, will sign off.
--- NOTE | 2023-11-17 11:05 | W.PN.PUL3 ---
Today's Communication / Plan
-
Aspiration precautions
Continue tube feeds
Titrate O2 flow rate to maintain SpO2 >90-94% --> check walking pulse oximetry prior to discharge
MAP>65
ABx -once ready for discharge, sent home on Augmentin and complete a total of 7 days of antibiotics
Follow up infectious workup
Assessment
-
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
cancer s/p resection with chemo/radiation about 21 years ago who now presents with shortness of breath. Patient was traveling in [place] when he began to feel short of breath. Came home about 9 days ago and shortness of breath persisted. Patient
has oxygen at home and applied 5 L/min but still with no improvement. 911 called and found patient hypoxic to 83% on 5 L/min. Breathing treatment given with Atrovent with improvement in saturations. In the ER he was saturating 97% on
nonrebreather and was afebrile to 97.9 �F. Labs showed elevated lactic acid to 3.1, glucose 182, elevated troponin of 0.082, and procalcitonin 0.69. COVID antigen and flu swab A/B were negative. CXR showed hazy opacification in the right chest
suggesting pneumonia. Patient was given steroids, IV fluids (NS 0.9% x1L) and Zosyn in the ER and admitted to the hospitalist service. Antibiotics with Zosyn were continued and now pulmonary consulted for additional recommendations.
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
Impression:
#Acute respiratory failure with hypoxia likely due to aspiration pneumonia/pneumonitis
#Lactic acidosis � resolved
#Hyperglycemia
#Elevated troponin
#Chronic dysphagia with recurrent aspiration
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
#Hx of tonsillar cancer s/p resection and chemo/XRT (~21 years ago)
Plan:
- Aspiration precautions
- Diet as per BALL THREAD MACHINE TENDER --> they recommend NPO for now with aspiration risk hydration protocol
- Continue tube feeds
- Continue ABx with Zosyn, plan for total of 7-10 days --> once ready for discharge then send home on Augmentin to complete a 7 day course of ABx
- Infectious workup with blood and respiratory cultures; check legionella and Strep PNA urine antigens; MRSA swab negative
- Maintain SpO2 >90-94% with supplemental O2 - check walking pulse ox prior to discharge
- Incentive spirometer encouraged
- Replete electrolytes with K>4, Mg>2
- Maintain euglycemia with goal BG >100 and <180
- prn nebulized bronchodilators
- DVT ppx
Pulmonary service will continue to follow along.
Total time spent today was 35 minutes for this encounter. Time includes reviewing laboratory test/imaging results, reviewing pertinent medical records, obtaining and reviewing medical history, performing an appropriate exam, ordering medications,
tests and procedures. Time also includes documentation of this encounter, coordinating patient care and communicating with other healthcare professionals. Total time does not include separately billed tests performed on this date of service.
Data:
CXR 11-15-2023:
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
Hazy opacification in the right chest which could represent pneumonitis.
Subjective Data
-
Date of Service:
Date of Service: November 17, 2023
Chief Complaint: Pulmonary Follow Up
Subjective:
Patient seen this morning. Doing well, eager to go home. Currently on 4 L/min nasal cannula. Has mild cough with some production of phlegm but not bothersome. No issues reported from overnight. Denies chest pain, headache, abdominal pain,
fevers or chills.
Review of Systems
General: Other (Negative unless mentioned above)
Objective Data
Data Reviewed
Vital Signs / I&O / Oxygen:
Vital Signs
Temp Pulse Resp BP Pulse Ox
97.3 F 57 18 119/63 96
11/17/23 11:40 11/17/23 11:40 11/17/23 11:40 11/17/23 11:40 11/17/23 11:40
Intake and Output
11/16/23 11/17/23 11/18/23
06:59 06:59 06:59
Intake Total 820 / 820 1150 / 1150
Output Total 1250 / 1250 1230 / 1230
Balance -430 / -430 -80 / -80
SaO2 96
Nasal Cannula flow liters per 4
minute
Physical Exam
General: Respiratory Distress (Negative), Comfortable and Chills (Negative)
HEENT: Normocephalic, Anicteric and Other (+dentures in upper row of mouth)
Cardiovascular: S1-S2 and Peripheral Edema (negative)
Respiratory: Wheeze (Negative), Crackles (Bibasilar), Rhonchi (right anterior chest) and Accessory Resp Muscle Use (negative)
GI: Soft, Non Distended, Non Tender and Normal Bowel Sounds
Neurology: Other (Sleeping but easily arousable and answering questions appropriately)
Skin: Warm and Dry
Labs/Micro/Reports
Lab Data
11/17/23 06:27
11/17/23 06:27
Microbiology
11/15/23 08:18 Blood/Venous Blood Culture - Preliminary
No Growth in 48 hours- Final report to follow
11/15/23 07:31 Blood/Venous Blood Culture - Preliminary
No Growth in 48 hours- Final report to follow
11/15/23 12:57 Nose MRSA Screen - Final
No Methicillin Resistant Staphylococcus aureus isolated.
11/15/23 12:57 Sputum Respiratory Culture - Final
11/15/23 12:57 Sputum Gram Stain - Final
11/15/23 08:31 Nasal Swab Influenza Types A & B (HÉCTOR) - Final
Negative for Influenza A & B, NAAT
Negative results must be combined with clinical observations
and patient history.
Nucleic Acid Amplification test (NAAT)performed on the
[employer] platform.
--- NOTE | 2023-11-17 11:37 | PN.CDI ---
CDI
- -
CDI:
Physician Documentation Request
Admit Date: 11/15/23 11:13
Dear Doctor Shala,
Please review the following and provide your response in the progress notes.
Clinical Indicators:
5/6 Pt admitted with Pneumonia and Acute Respiratory failure
5/6 H&P: 'A-fib on Eliquis'
If possible, please provide further specificity regarding atrial fibrillation, such as:
Paroxysmal atrial fibrillation - terminates spontaneously or with intervention within 7 days of onset
Persistent atrial fibrillation - episodes of continuous AF that last more than 7 days and do not self-terminate
Long lasting persistent atrial fibrillation - episodes of continuous AF that last more than 12 months
Chronic (permanent) atrial fibrillation - when a decision has been made to accept the presence of AF and there is no further attempt to restore or maintain sinus rhythm
Other - please specify
Use of terms such as suspected, likely, concern for, or probable (associated with a specific diagnosis that is being evaluated, monitored, or treated as if it exists) are acceptable and can be coded in the inpatient setting, when documented at the
time of discharge.
Thank you,
Karyn Muse RN, BSN
CDI Specialist
Available via [place] [employer]
Please use your independent medical judgment in providing your response.
--- NOTE | 2023-11-17 15:28 | W.PN.HOSP.TC ---
Today's Communication/Plan
-
Anticipated transition to PO antibiotics in the next 24 hours
Home oxygen test tomorrow AM
Appreciate pulmonary
Assessment / Plan
Assessment / Plan
Physical Exam
General: No Apparent Distress
HEENT: NormoCephalic, Moist mucous membranes and Atraumatic
Respiratory: Wheezes
Cardiac: S1/S2 and Regular Rhythm
GI: Soft, Non Tender and Normal Bowel Sounds
Musculoskeletal: No Cyanosis and No Edema
Skin: Warm and Dry
Neuro: Awake, Alert and AO x 3
Psych: Calm and Intact Judgment/Insight
Assessment/Plan
Acute respiratory failure with hypoxia likely due to aspiration pneumonia/pneumonitis
Aspiration Pneumonia
Elevated Immature Granulocytes
Recurrent aspiration
Aspiration pneumonia
Recurrent pneumonia with prior history of trach (s/p decannulation)
-Continue Zosyn -- plan to switch to PO antibiotics in the next 24 hours -- discussed with pulmonary today
-MRSA screen negative
-Sputum Cultures
-Follow blood cultures
-Consult pulmonary, recommendations appreciated
-Patient takes Levaquin 750 mg prn infection based on home medications list
-On November 17, 2023, patient had a successful exchange of the gastrojejunostomy catheter by interventional radiology
Possible Tiny Bilateral Pleural Effusions
Asbestos-related pleural disease
-Consult pulmonary, recommendations appreciated
Congestive heart failure
-Continue home beta yana Metoprolol
A-fib on Eliquis
-Continue Eliquis -- patient strongly stated during this hospitalization that his Eliquis is 5 mg daily, not BID
-Continue Amiodarone
-Continue Metoprolol
History of Throat cancer status post resection
Gastrostomy Tube Feedings
-Continue home tube feedings
-Continue home medications through tube feedings
-Dietitian consulted for recommendations
Guillain-Awad� syndrome
-During 2022 hospitalization it was noted that given patient has had frequent pneumonias since GBS in 2017 an Ig panel was checked with finding of low IgG - and immunologic work-up as outpatient was recommended.
-Chronic left lower leg numbness
Hypertension
-Continue home beta yana
Hyperlipidemia
Hypothyroidism
-Continue Levothyroxine
DVT PPx: Eliquis
Diet: Tube Feedings and NPO with aspiration risk hydration protocol
Code Status: Full Code
On November 16, 2023, I spoke to patient's daughter Laura. All questions and concerns were answered to satisfaction.
Anticipated Discharge: 24 - 48 hours
Subjective/Interval History
-
Date of Service: November 17, 2023
Patient was seen and examined. He reported feeling okay, denied any new symptoms or complaints.
Objective Data
-
Labs:
Laboratory Results
11/17/23
06:27
WBC 8.0
Hgb 13.0
Hct 43.5
Plt Count 169
Sodium 138
Potassium 4.2
Chloride 96 L
Carbon Dioxide 36 H
BUN 52 H
Creatinine 1.1
Glucose 126 H
Calcium 9.4
Vital Signs:
Vital Signs
Temp Pulse Resp BP Pulse Ox
98.4 F 59 16 107/65 97
11/17/23 15:18 11/17/23 15:18 11/17/23 15:18 11/17/23 15:18 11/17/23 15:18
I&O
11/16/23 11/17/23 11/18/23
06:59 06:59 06:59
Intake Total 820 / 820 1150 / 1150
Output Total 1250 / 1250 1230 / 1230
Balance -430 / -430 -80 / -80
--- NOTE | 2023-11-17 16:21 | CM ---
Pt has home oxygen with [facility].O2 4 liters Pox 97 %.
He had GJ tube replaced here. He has tube feeding bolus with [employer].Senior Solutions Engineer saw him.
PT recommended VN .
Spoke with patient he requested [facility] .PCP DR Jaime. Vashti liaison [facility] notified via TT.
PLAN Home with [facility] if accepted Has home oxygen
--- NOTE | 2023-11-17 17:51 | PTCARENOTE ---
Received patient this am AAOx3. Pt NPO for Exchange of Peg tube. Pt off unit today to Interventional Radiology for tube exchange. Pt restarted tube feeding this afternoon. Pt given bolus feed of 500 ml X 2. Manual flush of 120 ml following
bolus. Tolerated feedings well. Offered no complaints. Made patient comfortable. Cont to assess patient status.
[2023-11-18] MEDS: ZOSYN 50 IV ×2 (02:52→08:00)
[2023-11-18 03:54] VITALS: BP 119/74
[2023-11-18 05:19] LABS: % Basophils 0.5 % (0-2); % Eosinophils 2.6 % (0-6); % Immature Granulocytes 2.6 % (0-0.5); % Lymphocytes 37.7 % (20.5-51.1); % Monocytes 7.9 % (1.7-9.3); % Neutrophils 48.7 % (42.2-75.2); Absolute Eosinophils 0.2 10^3/uL (0-0.7); Absolute Immature Granulocytes 0.2 10^3/uL (0-0.05); Absolute Lymphocytes 3.3 10^3/uL (1.2-3.4); Absolute Monocytes 0.7 10^3/uL (0.1-0.6); Absolute Neutrophils 4.2 10^3/uL (1.4-6.5); Hematocrit 40.3 % (39.0-52.0); Hemoglobin 12.4 g/dL (13.0-18.0); Mean Corp Hgb Conc. 30.8 g/dL (33.0-37.0); Mean Corpuscular Hgb 27.2 pg (27.0-31.0); Mean Corpuscular Volume 88.4 fL (80.0-94.0); Mean Platelet Volume 11.4 fL (7.4-10.4); Nucleated Red Blood Cells % 0 % (-); Platelet Count 164 10^3/uL (130-400); Red Blood Cell Count 4.56 10^6/uL (4.70-6.10); Red Cell Dist. Width 16.6 % (11.5-14.5); White Blood Cell Count 8.7 10^3/uL (4.8-10.8)
[2023-11-18] MEDS: SYNTHROID 150 MCG TUBE (05:29)
[2023-11-18 05:52] LABS: Blood Urea Nitrogen 46 mg/dl (9-20); Carbon Dioxide 37 mmol/L (22-30); Chloride 96 mmol/L (98-107); Estimated Creatinine Clearance 51 ml/min; Glucose 144 mg/dl (70-99); Potassium 4.1 mmol/L (3.5-5.1); Sodium 134 mmol/L (135-145); eGFR > 60.00
[2023-11-18 07:50] VITALS: BP 153/98
[2023-11-18] MEDS: ELIQUIS 5 MG TUBE (07:58)
[2023-11-18] MEDS: LOPRESSOR 25 MG TUBE (07:59)
[2023-11-18] MEDS: PACERONE 200 MG TUBE (07:59)
[2023-11-18] MEDS: FLUSH (NSS) 1 FLUSH IV (08:00)
--- NOTE | 2023-11-18 09:56 | VNURNOTE ---
Home health liaison met with patient to discuss [facility] services. Patient states he will be staying with his daughter for a few days and then is heading home to [place]. States he knows how to use his G-tube and has oxygen at home. Patient agreeable
to have home health liaison call daughter Laura to discuss. Laura states she would like home health to be set up in [place] as patient will not be local for more than a few days. manager maritime notified
[2023-11-18 10:30] VITALS: BP 109/72; PULSE 58; O2SAT 97
--- NOTE | 2023-11-18 10:43 | CM ---
Addendum entered by Alma Nelson 11/18/23 14:27:
verified with Kelsy from [facility], they did receive referral.
Addendum entered by Alma Nelson 11/18/23 13:36:
IMM completed.
Patient will d/c home with daughter then will return to [place] in about 1 week.
Plan: home with [facility], home oxygen (already has)
Patients daughter will bring in oxygen tank for d/c.
[facility]
Faxe# [phone].
Addendum entered by lAma Nelson 11/18/23 13:17:
Spoke with Shirley from Dr Canchola office, patient is a current patient.
He will need to make an appointment at time of d/c, [facility]N will get orders from [facility].
Patient has home oxygen tank, daughter will bring tank at time of d/c.
Addendum entered by Alma Nelson 11/18/23 12:20:
TC [facility], and spoke with Kelsy.
They can accept patient.
Faxed referral to [phone].
Patient will need to schedule and appointment with PCP prior to being seen (needs a face to face), will update daughter.
Patient for d/c home. Daughter will transport.
Original Note:
Spoke with [facility] and they spoke with daughter. patient is planning on returning to [place] and will need VN there, not here.
Plan is to return to [place] in a week.
PT recommending home with VN.
Patient has his nutrition available at home and home oxygen.
Spoke with patient, he does not remember who he was set up with for VN in the past.
TC to patients PCP; Dr Jennifer Canchola office at [facility] P# [phone], left VM requesting call back re prior home care agency or agencies they refer to. Await tcb.
Spoke with patients daughter Laura and updated her.
Patients Home address is:
[address]
[place] [address]
P# [phone]
Plan: home with VN, await TCB from [facility] office.
--- NOTE | 2023-11-18 11:10 | W.PN.PUL3 ---
Today's Communication / Plan
-
Aspiration precautions
Continue tube feeds
Titrate O2 flow rate to maintain SpO2 >90-94% --> check walking pulse oximetry prior to discharge
MAP>65
ABx -once ready for discharge, sent home on Augmentin and complete a total of 7 days of antibiotics
Follow up infectious workup
Patient being prepared for discharge home. Pulmonary service will now sign off. Please reconsult if there are any additional questions/concerns, or if patient's respiratory status deteriorates.
Assessment
-
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
cancer s/p resection with chemo/radiation about 21 years ago who now presents with shortness of breath. Patient was traveling in [place] when he began to feel short of breath. Came home about 9 days ago and shortness of breath persisted. Patient
has oxygen at home and applied 5 L/min but still with no improvement. 911 called and found patient hypoxic to 83% on 5 L/min. Breathing treatment given with Atrovent with improvement in saturations. In the ER he was saturating 97% on
nonrebreather and was afebrile to 97.9 �F. Labs showed elevated lactic acid to 3.1, glucose 182, elevated troponin of 0.082, and procalcitonin 0.69. COVID antigen and flu swab A/B were negative. CXR showed hazy opacification in the right chest
suggesting pneumonia. Patient was given steroids, IV fluids (NS 0.9% x1L) and Zosyn in the ER and admitted to the hospitalist service. Antibiotics with Zosyn were continued and now pulmonary consulted for additional recommendations.
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
Impression:
#Acute respiratory failure with hypoxia likely due to aspiration pneumonia/pneumonitis
#Lactic acidosis � resolved
#Hyperglycemia - improved
#Elevated troponin - peaked at 0.265 on 11/16/2023
#Chronic dysphagia with recurrent aspiration
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
#Hx of tonsillar cancer s/p resection and chemo/XRT (~21 years ago)
Plan:
- Aspiration precautions
- Diet as per GEOSPATIAL INFORMATION SCIENTIST --> they recommend NPO for now with aspiration risk hydration protocol
- Continue tube feeds
- Continue ABx with Zosyn, plan for total of 7-10 days --> discharge home on Augmentin to complete a 7 day course of ABx
- Infectious workup with blood and respiratory cultures; check legionella and Strep PNA urine antigens; MRSA swab negative
- Maintain SpO2 >90-94% with supplemental O2 - check walking pulse ox prior to discharge
- Incentive spirometer encouraged
- Replete electrolytes with K>4, Mg>2
- Maintain euglycemia with goal BG >100 and <180
- prn nebulized bronchodilators
- DVT ppx
Patient being prepared for discharge home. Pulmonary service will now sign off. Thank you for allowing us to be involved in the care of this patient. Please reconsult if there are any additional questions/concerns, or if patient's respiratory
status deteriorates.
Total time spent today was 25 minutes for this encounter. Time includes reviewing laboratory test/imaging results, reviewing pertinent medical records, obtaining and reviewing medical history, performing an appropriate exam, ordering medications,
tests and procedures. Time also includes documentation of this encounter, coordinating patient care and communicating with other healthcare professionals. Total time does not include separately billed tests performed on this date of service..
Data:
CXR 11-15-2023:
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
Hazy opacification in the right chest which could represent pneumonitis.
Subjective Data
-
Date of Service:
Date of Service: November 18, 2023
Chief Complaint: Pulmonary Follow Up
Subjective:
Seen this morning. Going home today. No events reported overnight. Denies chest pain, headache, fevers or chills.
Review of Systems
General: Other (Negative unless mentioned above)
Objective Data
Data Reviewed
Vital Signs / I&O / Oxygen:
Vital Signs
Temp Pulse Resp BP Pulse Ox
98.4 F 59 20 107/65 95
11/18/23 11:52 11/18/23 11:52 11/18/23 11:52 11/18/23 11:52 11/18/23 12:01
Intake and Output
11/17/23 11/18/23 11/19/23
06:59 06:59 06:59
Intake Total 1150 / 1150 100 / 100 1340 / 1340
Output Total 1230 / 1230 725 / 725 200 / 200
Balance -80 / -80 -625 / -625 1140 / 1140
SaO2 95
Nasal Cannula flow liters per 2
minute
Physical Exam
General: Respiratory Distress (Negative), Comfortable and Chills (Negative)
HEENT: Normocephalic, Anicteric and Other (+dentures in upper row of mouth)
Cardiovascular: S1-S2 and Peripheral Edema (negative)
Respiratory: Wheeze (Negative), Crackles (Bibasilar), Rhonchi (right anterior chest) and Accessory Resp Muscle Use (negative)
GI: Soft, Non Distended, Non Tender and Normal Bowel Sounds
Neurology: Other (Sleeping but easily arousable and answering questions appropriately)
Skin: Warm and Dry
Labs/Micro/Reports
Lab Data
11/18/23 04:27
11/18/23 04:27
Microbiology
11/15/23 08:18 Blood/Venous Blood Culture - Preliminary
No Growth in 72 hours- Final report to follow
11/15/23 07:31 Blood/Venous Blood Culture - Preliminary
No Growth in 72 hours- Final report to follow
11/15/23 12:57 Nose MRSA Screen - Final
No Methicillin Resistant Staphylococcus aureus isolated.
11/15/23 12:57 Sputum Respiratory Culture - Final
11/15/23 12:57 Sputum Gram Stain - Final
[2023-11-18 11:52] VITALS: BP 107/65
[2023-11-18 12:13] VITALS: O2SAT 84
--- NOTE | 2023-11-18 12:14 | RESPNOTE ---
Patient with desat to 84% at rest and ambulation without o2. 2L NC placed at rest; spo2 92%. 2L NC on for ambulation, spo2 maintained 91-92%. Patient ambulated 150 ft total.
--- NOTE | 2023-11-18 12:16 | PTOTSP ---
new orders received, pt was seen ~24 hours prior. pt had no acute OT needs at time of evaluation. 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 no acute OT needs identifed, will sign off.
--- NOTE | 2023-11-18 14:05 | W.PN.HOSP.TC ---
Addendum entered and electronically signed by Hawk Last MD 11/18/23 14:13:
Corrected Assessment/Plan, as below:
Assessment/Plan
Acute respiratory failure with hypoxia likely due to aspiration pneumonia/pneumonitis
Aspiration Pneumonia
Elevated Immature Granulocytes
Recurrent aspiration
Aspiration pneumonia
Recurrent pneumonia with prior history of trach (s/p decannulation)
-Continue Zosyn while in hospital
-Switch to Augmentin 875 mg Q12H on discharge for another 4 days
-MRSA screen negative
-Sputum Cultures
-Follow blood cultures
-Consulted pulmonary, recommendations appreciated
-Patient takes Levaquin 750 mg prn infection based on home medications list
-On November 17, 2023, patient had a successful exchange of the gastrojejunostomy catheter by interventional radiology
-Continue your home oxygen to maintain SpO2 >90-94% with supplemental O2
Possible Tiny Bilateral Pleural Effusions
Asbestos-related pleural disease
-Consult pulmonary, recommendations appreciated
Paroxysmal Atrial Fibrillation on Eliquis
-Continue Eliquis -- patient strongly stated during this hospitalization that his Eliquis is 5 mg daily, not BID
-Continue Amiodarone
-Continue Metoprolol
Nonischemic Myocardial Injury
History of Throat cancer status post resection
Gastrostomy Tube Feedings
-Continue home tube feedings
-Continue home medications through tube feedings
-Dietitian consulted for recommendations
Guillain-Awad� syndrome
-During 2022 hospitalization it was noted that given patient has had frequent pneumonias since GBS in 2017 an Ig panel was checked with finding of low IgG - and immunologic work-up as outpatient was recommended.
-Chronic left lower leg numbness
Hypertension
-Continue home beta yana
Hyperlipidemia
Hypothyroidism
-Continue Levothyroxine
DVT PPx: Eliquis
Diet: Tube Feedings and NPO with aspiration risk hydration protocol
Code Status: Full Code
On November 16, 2023, I spoke to patient's daughter Laura. All questions and concerns were answered to satisfaction.
More than 30 minutes spent in discharge including
Final examination of the patient
Summarizing hospital stay
Instructions for continuing care to all relevant caregivers
Preparation of discharge records, prescriptions, and referral forms
Total time spent (in minutes): 37
Original Note:
Today's Communication/Plan
-
Discharge today
Assessment / Plan
Assessment / Plan
Physical Exam
General: No Apparent Distress
HEENT: NormoCephalic, Moist mucous membranes and Atraumatic
Respiratory: Wheezes
Cardiac: S1/S2 and Regular Rhythm
GI: Soft, Non Tender and Normal Bowel Sounds
Musculoskeletal: No Cyanosis and No Edema
Skin: Warm and Dry
Neuro: Awake, Alert and AO x 3
Psych: Calm and Intact Judgment/Insight
Assessment/Plan
Acute respiratory failure with hypoxia likely due to aspiration pneumonia/pneumonitis
Aspiration Pneumonia
Elevated Immature Granulocytes
Recurrent aspiration
Aspiration pneumonia
Recurrent pneumonia with prior history of trach (s/p decannulation)
-Continue Zosyn while in hospital
-Switch to Augmentin 875 mg Q12H on discharge for another 4 days
-MRSA screen negative
-Sputum Cultures
-Follow blood cultures
-Consulted pulmonary, recommendations appreciated
-Patient takes Levaquin 750 mg prn infection based on home medications list
-On November 17, 2023, patient had a successful exchange of the gastrojejunostomy catheter by interventional radiology
-Continue your home oxygen to maintain SpO2 >90-94% with supplemental O2
Possible Tiny Bilateral Pleural Effusions
Asbestos-related pleural disease
-Consult pulmonary, recommendations appreciated
Congestive heart failure
-Continue home beta yana Metoprolol
A-fib on Eliquis
-Continue Eliquis -- patient strongly stated during this hospitalization that his Eliquis is 5 mg daily, not BID
-Continue Amiodarone
-Continue Metoprolol
History of Throat cancer status post resection
Gastrostomy Tube Feedings
-Continue home tube feedings
-Continue home medications through tube feedings
-Dietitian consulted for recommendations
Guillain-Awad� syndrome
-During 2022 hospitalization it was noted that given patient has had frequent pneumonias since GBS in 2017 an Ig panel was checked with finding of low IgG - and immunologic work-up as outpatient was recommended.
-Chronic left lower leg numbness
Hypertension
-Continue home beta yana
Hyperlipidemia
Hypothyroidism
-Continue Levothyroxine
DVT PPx: Eliquis
Diet: Tube Feedings and NPO with aspiration risk hydration protocol
Code Status: Full Code
On November 16, 2023, I spoke to patient's daughter Laura. All questions and concerns were answered to satisfaction.
More than 30 minutes spent in discharge including
Final examination of the patient
Summarizing hospital stay
Instructions for continuing care to all relevant caregivers
Preparation of discharge records, prescriptions, and referral forms
Total time spent (in minutes): 37
Anticipated Discharge: Today
Subjective/Interval History
-
Date of Service: November 18, 2023
Patient was seen and examined. He denied any chest pain or shortness of breath. He would like to go home today.
Objective Data
-
Labs:
Laboratory Results
11/18/23
04:27
WBC 8.7
Hgb 12.4 L
Hct 40.3
Plt Count 164
Sodium 134 L
Potassium 4.1
Chloride 96 L
Carbon Dioxide 37 H
BUN 46 H
Creatinine 1.2
Glucose 144 H
Calcium 9.0
Vital Signs:
Vital Signs
Temp Pulse Resp BP Pulse Ox
98.4 F 59 20 107/65 95
11/18/23 11:52 11/18/23 11:52 11/18/23 11:52 11/18/23 11:52 11/18/23 12:01
I&O
11/17/23 11/18/23 11/19/23
06:59 06:59 06:59
Intake Total 1150 / 1150 100 / 100
Output Total 1230 / 1230 725 / 725 200 / 200
Balance -80 / -80 -625 / -625 -200 / -200
--- NOTE | 2023-11-18 14:21 | W.DS.TRANS ---
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
-
Discharge Instructions:
Discharge Diagnosis/Procedures Acute respiratory failure with hypoxia likely
due to aspiration pneumonia/pneumonitis
Aspiration Pneumonia
Elevated Immature Granulocytes
Recurrent aspiration
Aspiration pneumonia
Recurrent pneumonia with prior history of trach
(s/p decannulation)
Possible Tiny Bilateral Pleural Effusions
Asbestos-related pleural disease
Paroxysmal Atrial Fibrillation on Eliquis
Non-ischemic Myocardial Injury
History of Throat cancer status post resection
Gastrostomy Tube Feedings
Guillain-Awad� syndrome
Hypertension
Hyperlipidemia
Hypothyroidism
Diet Other diet
Additional Diets Tube Feeding
Activity As tolerated
Other Services VN
Instructions:
Stand-Alone Forms:
Changes to Home Medications: Yes
Discharge Medications:
DC Medications w/original date entered in [facility]
amiodarone 200 mg tablet (Pacerone) 200 mg feeding tube DAILY Arrhythmia 11/15/23
apixaban 5 mg tablet (Eliquis) 5 mg feeding tube DAILY Blood Clot Prevention/Tx 11/15/23
levofloxacin 750 mg tablet 750 mg feeding tube DAILYPRN PRN infection 11/15/23
levothyroxine 175 mcg tablet (Synthroid) 150 mcg feeding tube DAILY Thyroid 11/15/23
loperamide 2 mg tablet 2 mg feeding tube Q4HPRN PRN diarrhea 11/15/23
metoprolol tartrate 25 mg tablet 25 mg feeding tube DAILY Blood Pressure 11/15/23
amoxicillin 875 mg-potassium clavulanate 125 mg tablet 1 tab PO Q12H 4 days #8 tabs 11/18/23
Home Medication Changes
Amoxicillin-Potassium Clavulanate is a new medication
Pending Results: Yes
Additional Pending Results:
Final results of blood cultures from the hospitalization.
Total time spent discharging patient (in min): 37
[2023-11-18] MEDS: ZOSYN IV (14:43)
--- NOTE | 2023-11-21 11:30 | W.DCSUMMARY ---
Discharge Summary
Discharge Data
Date of Admission: 11/15/23
Date of Discharge: 11/18/23
Total time spent discharging patient (in min): 37
-
Pending Results: Yes
Additional Pending Results:
Final results of blood cultures from the hospitalization.
Hospital Course
73 year-old male with history of congestive heart failure, A-fib on Eliquis, hypothyroidism, throat cancer status post resection, recurrent aspiration, aspiration pneumonia and recurrent pneumonia with prior history of trach (s/p decannulation),
Gastrostomy Tube Feedings, Guillain-Awad� syndrome, Hypertension, Hyperlipidemia, and Hypothyroidism presented to the emergency department for evaluation of shortness of breath and productive cough for approximately 1 week prior to presentation.
Patient said he developed symptoms while he was in [place], felt as though he could not breathe and could not stand still for very long, shortly after returning from [place] by air, he had increased coughing and shortness of breath, however he said
that he is able to ambulate fine. Hypoxic on arrival with EMS with 15 L nonrebreather mask. Patient also was also noted to have vomited on the morning of presentation.
Patient was hospitalized from October 21, 2022 to October 28, 2022 with aspiration pneumonia and atrial fibrillation with rapid ventricular rate, after presenting with shortness of breath and vomiting. At that time, he completed his course of IV
antibiotics in the hospital (IV Zosyn then Unasyn) and remained on high flow oxygen - it was difficult to wean oxygen. Patient also received intravenous Lasix with improvement in oxygen but needed some intravenous fluids given back. Patient also had
A-Fib with RVR with hypotension, and started on Amiodarone, and was newly started on Metoprolol and Eliquis. He was found to require 2L with ambulation on discharge.
This hospitalization, patient was suspected to have aspiration pneumonia and started on Zosyn. Pulmonary was consulted. Speech was also consulted and they recommended N.P.O. for now with aspiration risk hydration protocol. Patient's oxygenation
improved. Interventional radiology performed a successful exchange of the gastrojejunostomy catheter for broken flange of GJ tube on November 17, 2023. Patient was soon stable for discharge would need to continue his home oxygen to maintain oxygen
saturation greater than 90-94%.
Discharge Plan
-
Patient Disposition: Home with Home Care
Discharge Diagnosis/Procedures: Acute respiratory failure with hypoxia likely due to aspiration pneumonia/pneumonitis
Aspiration Pneumonia
Elevated Immature Granulocytes
Recurrent aspiration
Aspiration pneumonia
Recurrent pneumonia with prior history of trach (s/p decannulation)
Possible Tiny Bilateral Pleural Effusions
Asbestos-related pleural disease
Paroxysmal Atrial Fibrillation on Eliquis
Non-ischemic Myocardial Injury
History of Throat cancer status post resection
Gastrostomy Tube Feedings
Guillain-Awad� syndrome
Hypertension
Hyperlipidemia
Hypothyroidism
Condition: Good
Diet: Other diet
Additional Diets: Tube Feeding
Activity: As tolerated
Other Services: VN
Activity Restrictions/Additional Instructions:
Continue your home oxygen to maintain oxygen saturations >90% to 94% at all times
Referrals:
UNKNOWN - PT DOES,NOT KNOW [Family Provider] -
Additional Discharge Medication Instructions: Amoxicillin-Pot Clavulanate is a new medication.
Prescriptions:
New
amoxicillin-pot clavulanate 875-125 mg tablet
1 tab PO Q12H 4 Days Qty: 8 0RF
Continued
loperamide 2 mg Tablet
2 mg feeding tube Q4HPRN PRN (Reason: diarrhea)
levofloxacin 750 mg Tablet
750 mg feeding tube DAILYPRN PRN (Reason: infection)
amiodarone [Pacerone] 200 mg tablet
200 mg feeding tube DAILY
metoprolol tartrate 25 mg tablet
25 mg feeding tube DAILY
Eliquis 5 mg tablet
5 mg feeding tube DAILY
Patient Comments:
11/15/2023- bottle written for bid not daily
levothyroxine [Synthroid] 175 mcg Tablet
150 mcg feeding tube DAILY
Rx Instructions:
patient has 175mcg and 200mcg in his bottles, stated he does not know what they are but takes them once a day. all bottles are date 2022 and mixed. ost are missing labels
Discharge Orders:
Discharge Patient (As Directed); Ordered 11/18/23
Ordered By: Hawk Last
Discharge Date and Time
Discharge Date/Time: 11/18/23 15:46
Print Language: N[place]
== END 2023-11-18 15:46 | disposition home health service (06) | DRG 177 ==
LOC: 4 EAST ACU 11:13
PROVIDERS: Physician Assistant; Radiology Diagnostic Radiology; ADMITTING PHYSICIAN Hospitalist; CONSULT PHYSICIAN Internal Medicine Critical Care Medicine; EMERGENCY PHYSICIAN Emergency Medicine
PROC: 0D2DXUZ Change Feeding Device in Lower Intestinal Tract, External Approach (ICD-10-PCS; 2023-11-17)
DX: J69.0 Pneumonitis due to inhalation of food and vomit (principal); J96.01 Acute respiratory failure with hypoxia; I5A Non-ischemic myocardial injury (non-traumatic); E87.21 Acute metabolic acidosis; Z11.52 Encounter for screening for COVID-19; I11.0 Hypertensive heart disease with heart failure; J61 Pneumoconiosis due to asbestos and other mineral fibers; I48.0 Paroxysmal atrial fibrillation; Z79.01 Long term (current) use of anticoagulants; E78.00 Pure hypercholesterolemia, unspecified; E03.9 Hypothyroidism, unspecified; I95.9 Hypotension, unspecified
CPT/HCPCS: 49452; 71045; 80048; 80053; 83605; 83735; 84145; 84484; 85025; 86803; 87040; 87070; 87205; 87502; 87811; 92610; 93005; 94761; 96361; 96365; 96375; 97162; 97165; 97530; 99291; C1769